=== PATIENT | male | born 1965 ===

== ENCOUNTER → 2023-06-17 11:49 | Outpatient (CLI) | payer OTHER, SELFPAY ==
--- NOTE | 2023-06-17 10:22 | DI.RAD_ITS ---
Exam(s) XR FOOT LT COMPLETE XR FOOT RT COMPLETE EXAM: XR FOOT LT COMPLETE CLINICAL HISTORY: M79.673 pain in unspecified foot, comparison xray. TECHNIQUE: 2D digital imaging was performed. Three views both feet. COMPARISON: CR XR FOOT RT COMPLETE from 06/17/2023 FINDINGS: BONES: No acute fracture is present. No bony destructive lesion is seen. Plantar calcaneal spur on t he right. JOINTS: No dislocation present. Mild 1st MTP joint space narrowing and periarticular spurring bilat erally. No additional sites of degenerative change are seen in either foot. SOFT TISSUE: Normal. 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 Plantar spur on the right calcaneus. DATA REPOSITORY: RADIATION DOSE DELIVERED:
== END ==
PROVIDERS: PCP Nurse Practitioner Adult Health; Visit Provider Podiatrist
DX: M79.671 Pain in right foot (principal); M79.672 Pain in left foot
CPT/HCPCS: 73630